=== PATIENT | male | born 1935 | race Caucasian/White ===

== ENCOUNTER 2019-10-31 12:51 | Emergency (ER) | payer MEDICARE, SELFPAY ==
[2019-10-31 13:01] VITALS: BP 126/73; PULSE 88; RESP 18; TEMP 36.6; O2SAT 99
--- NOTE | 2019-10-31 13:31 | ED.WOUNDLAC ---
HPI - Wound/Laceration General Chief Complaint: Wound/Laceration Stated Complaint: lower leg injury Time Seen by Provider: 10/31/19 12:55 History of Present Illness HPI narrative: He struck his left lower leg with a door shortly before arrival here. He sustained a large laceration to the area. He has moderate pain and copious bleeding, which he was not able to control. He is on coumadin. No light headedness, weakness, SOB. He denies any additional injury. Related Data Home Medications Medication Instructions Recorded Confirmed acyclovir 200 mg capsule 200 mg PO DAILY cap 04/17/19 atorvastatin 10 mg tablet 10 mg PO DAILY 04/17/19 clopidogrel 75 mg tablet 75 mg PO DAILY 04/17/19 doxazosin 2 mg tablet 2 mg PO DAILY 04/17/19 furosemide 20 mg tablet 20 mg PO DAILY tablet 04/17/19 lisinopril 10 mg tablet 10 mg PO DAILY 04/17/19 loperamide 2 mg capsule 2 mg PO Q4H PRN 04/17/19 tacrolimus 1 mg capsule 1 mg PO BID cap 04/17/19 warfarin 2 mg tablet 2 mg PO .MTueWFSat tablet 04/17/19 warfarin 3 mg tablet 3 mg PO .SunThur tablet 04/17/19 Allergies Allergy/AdvReac Type Severity Reaction Status Date / Time No Known Allergies Allergy Verified 10/31/19 13:05 Review of Systems Review of Systems: All systems reviewed & are unremarkable except as noted in HPI and below Constitutional: Constitutional: Denies chills, Denies fever(s) and Denies weakness ENT: Denies dizziness Cardiovascular: Cardiovascular: Denies chest pain Respiratory: Respiratory: Denies dyspnea Gastrointestinal: Gastrointestinal: Denies nausea Genitourinary: Genitourinary: Denies hematuria Musculoskeletal: Musculoskeletal: Denies back pain Neurologic: Denies numbness and Denies weakness Hematologic/Lymphatic: Hematologic/Lymphatic: Reports easy bleeding PMFSH Past Medical History Medical History 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 Chronic diarrhea Chronic low back pain 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 Dyslipidemia Edema of both 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 Essential (primary) hypertension GERD without esophagitis Hypertension Lymphedema of both lower extremities Pre-diabetes Squamous cell carcinoma, scalp/neck Unspecified osteoarthritis, unspecified site Vitamin D deficiency Surgical History Surgical History History of cholecystectomy 2007 History of hernia repair 2017 History of right hip replacement 2002 Hx of heart transplant 1998 Family History Family History Other Family history of cardiovascular disease Social History Social History Smoking status: Never smoker Second hand tobacco smoke exposure: No Alcohol intake: current Substance use: never Substance use type: does not use Gender identity (if verbalized by the patient): Female Exam Const: General: no acute distress and alert Orientation/consciousness: patient oriented x3 HENMT: Head: normal to inspection Resp: Effort & Inspection: normal respiratory effort Auscultation: clear to auscultation bilaterally Cardio: Other: 2+ left DP pulse Skin: Other: 20 cm laceration to the left lower leg with copius bleeding Neuro: General: patient oriented x3, moves all extremities, no focal motor deficits and CN's II-XI intact bilaterally Speech: normal speech Course Vital Signs Vital signs: Vital Signs Temperature 36.6 C 10/31/19 13:01 Pulse Rate 88 10/31/19 13:01 Respiratory Rate 18 10/31/19 13:01 Blood Pressure 126/73 10/31/19 13:01 Pulse Oximetry 99 10/31/19 13:01 Temperature 36.6 C 10/31/19 13:01 Pulse Rate 92 10/31/19 16:10 Respiratory Rate 16 10/31/19 16:10 Blood Pressure 148/88 H 10/31/19 16:10 Pulse Oximetry
[2019-10-31 14:30] VITALS: BP 142/90; PULSE 82; RESP 16; O2SAT 97
[2019-10-31 14:51] LABS: Basophils Percent Auto 0.4 % (0.2-1.2); Eosinophils Absolute Auto 0.1 K/mm3 (0-0.3); Eosinophils Percent Auto 1.1 % (0-4.4); Hematocrit 34.2 % (42.0-52.0); Immature Granulocyte Absolute 0.03 K/mm3 (0.00-0.031); Immature Granulocyte Percent A 0.6 % (0-0.5); Lymphocytes Absolute Auto 0.67 K/mm3 (0.9-3.2); Lymphocytes Percent Auto 12.7 % (18.3-44.2); Mean Corpuscular HGB Conc 32.2 g/dl (32-36); Mean Corpuscular Hemoglobin 31.2 pg (26-34); Mean Corpuscular Volume 96.9 fl (80-100); Mean Platelet Volume 10.3 fl (7.4-10.4); Monocytes Absolute Auto 0.5 K/mm3 (0.1-0.6); Monocytes Percent Auto 9.3 % (2.6-8.5); Neutrophils Percent Auto 75.9 % (45.5-73.1); Platelet Count Result 137 k/mm3 (150-375); Red Blood Count 3.53 M/mm3 (4.6-6.20); Red Cell Distribution Width 13.4 % (11.5-14.5); White Blood Count 5.3 K/mm3 (4.5-10.0)
[2019-10-31 14:54] LABS: INR 3.5; Prothrombin Time 34.2 Seconds (11.1-14.7)
[2019-10-31 16:10] VITALS: BP 148/88; PULSE 92; RESP 16; O2SAT 98
[2019-10-31] MEDS: ACETAMINOPHEN 500 MG TABLET 1000 MG PO (16:10)
== END 2019-10-31 16:11 | disposition home or self-care (01) ==
PROVIDERS: Emergency Provider Emergency Medicine; PCP Family Medicine
DX: S81.812A Laceration without foreign body, left lower leg, initial encounter (principal); X58.XXXA Exposure to other specified factors, initial encounter; Z96.641 Presence of right artificial hip joint; Z94.1 Heart transplant status; Z79.01 Long term (current) use of anticoagulants; I25.110 Atherosclerotic heart disease of native coronary artery with unstable angina pectoris; E78.5 Hyperlipidemia, unspecified; I10 Essential (primary) hypertension; K21.9 Gastro-esophageal reflux disease without esophagitis; M19.90 Unspecified osteoarthritis, unspecified site; Z85.828 Personal history of other malignant neoplasm of skin
CPT/HCPCS: 12005; 36415; 85025; 85610; 99283; A9270

== ENCOUNTER 2019-10-31 20:33 | Observation (INO) | payer MEDICARE, SELFPAY ==
[2019-10-31 20:40] VITALS: BP 101/68; PULSE 80; RESP 13; TEMP 36.4; O2SAT 99
--- NOTE | 2019-10-31 20:57 | ED.GENADULT ---
HPI - General Adult General Chief complaint: Wound/Laceration <PHIL Zabala Last Filed: 10/31/19 22:18> Stated complaint: incision bleeding <PHIL Zabala Last Filed: 10/31/19 22:18> Time Seen by Provider: 10/31/19 20:36 <PHIL Zabala Last Filed: 10/31/19 22:18> Source: patient <PHIL Zabala Last Filed: 10/31/19 22:18> Mode of arrival: ambulatory <PHIL Zabala Last Filed: 10/31/19 22:18> Limitations: no limitations <PHIL Zabala Last Filed: 10/31/19 22:18> History of Present Illness HPI narrative: Patient is a 84-year-old male who presents to emergency department for evaluation of continued bleeding from the left lower extremity wound that occurred earlier today patient caught the leg on a car door had wound closed in the emergency department was discharged home patient at home continued to have bleeding from the wound and on arrival to emergency department notes that he was feeling diaphoretic and weak. Patient had felt fine prior to the injury patient had lost significant blood earlier today from the wound per patient and his . Patient had blood work performed in the emergency department. Patient on arrival is resting comfortably in the room noting mild pain in the left leg at the location of the laceration. Patient denies other sources of bleeding or complaints. Patient presents per private vehicle with his <PHIL Zabala Last Filed: 10/31/19 22:18> Related Data Home medications: Home Medications Medication Instructions Recorded Confirmed acyclovir 200 mg capsule 200 mg PO DAILY cap 04/17/19 atorvastatin 10 mg tablet 10 mg PO DAILY 04/17/19 clopidogrel 75 mg tablet 75 mg PO DAILY 04/17/19 doxazosin 2 mg tablet 2 mg PO DAILY 04/17/19 furosemide 20 mg tablet 20 mg PO DAILY tablet 04/17/19 lisinopril 10 mg tablet 10 mg PO DAILY 04/17/19 loperamide 2 mg capsule 2 mg PO Q4H PRN 04/17/19 tacrolimus 1 mg capsule 1 mg PO BID cap 04/17/19 warfarin 2 mg tablet 2 mg PO .MTueWFSat tablet 04/17/19 warfarin 3 mg tablet 3 mg PO .SunThur tablet 04/17/19 <Marcelino Martinez PA-C - Last Filed: 10/31/19 22:18> Allergies/adverse reactions: Allergies Allergy/AdvReac Type Severity Reaction Status Date / Time No Known Allergies Allergy Verified 10/31/19 13:05 <Marcelino Martinez PA-C - Last Filed: 10/31/19 22:18> Review of Systems Review of Systems: All systems reviewed & are unremarkable except as noted in HPI and below <Marcelino Martinez PA-C - Last Filed: 10/31/19 22:18> [facility] Past Medical History Medical History: Medical History (Updated 10/31/19 @ 22:18 by Marcelino Martinez PA-C) 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 Chronic diarrhea Chronic low back pain 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 DVT (deep venous thrombosis) Dyslipidemia Edema of both 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 Essential (primary) hypertension GERD without esophagitis Hypertension Lymphedema of both lower extremities Pre-diabetes Squamous cell carcinoma, scalp/neck Unspecified osteoarthritis, unspecified site Vitamin D deficiency <Marcelino Martinez PA-C - Last Filed: 10/31/19 22:18> Surgical History Surgical History: Surgical History History of cholecystectomy 2007 History of hernia repair 2017 History of right hip replacement 2001 Hx of heart transplant 1998 <Marcelino Martinez PA-C - Last Filed: 10/31/19 22:18> Social History Social History: Social History Smoking status: Never smoker Second hand tobacco smoke exposure: No Alcohol intake: current Substance use: never Substance use type: does not use Gender identity (if verbalized by the patient): Male Sexual Orientation (if Verbalized
[2019-10-31] MEDS: LIDO 1%/EPINEPHRINE 1:100,000 20 ML VIAL (21:21)
[2019-10-31] MEDS: SODIUM CHLORIDE 0.9% IV 500 ML 999 ML IV CONT ×2 (21:30→22:35)
[2019-10-31 21:37] LABS: Basophils Percent Auto 0.4 % (0.2-1.2); Eosinophils Absolute Auto 0.1 K/mm3 (0-0.3); Eosinophils Percent Auto 1.6 % (0-4.4); Hematocrit 30.2 % (42.0-52.0); Hemoglobin 9.7 g/dL (14.0-18.0); Immature Granulocyte Absolute 0.02 K/mm3 (0.00-0.031); Immature Granulocyte Percent A 0.4 % (0-0.5); Lymphocytes Absolute Auto 1.26 K/mm3 (0.9-3.2); Lymphocytes Percent Auto 25.9 % (18.3-44.2); Mean Corpuscular HGB Conc 32.1 g/dl (32-36); Mean Corpuscular Hemoglobin 31.3 pg (26-34); Mean Corpuscular Volume 97.4 fl (80-100); Mean Platelet Volume 10.1 fl (7.4-10.4); Monocytes Absolute Auto 0.5 K/mm3 (0.1-0.6); Monocytes Percent Auto 10.5 % (2.6-8.5); Neutrophils Percent Auto 61.2 % (45.5-73.1); Platelet Count Result 140 k/mm3 (150-375); Red Cell Distribution Width 13.4 % (11.5-14.5); White Blood Count 4.9 K/mm3 (4.5-10.0)
[2019-10-31 21:48] LABS: INR 3.6; Partial Thromboplastin Time 33.5 SECONDS (22.3-36.8); Prothrombin Time 35.2 Seconds (11.1-14.7)
[2019-10-31 21:49] LABS: Anion Gap 8 mmol/L (8-16); Blood Urea Nitrogen 47 mg/dL (9-20); Calcium 8.1 mg/dL (8.4-10.2); Carbon Dioxide 21 mmol/L (22-30); Chloride 108 mmol/L (98-107); Estimated CRCL calculation 36 ml/min; Estimated Glomerular Filt Rate 42; Glucose 141 mg/dL (75-110); Potassium 4.5 mmol/L (3.4-5.0); Sodium 137 mmol/L (137-145)
[2019-10-31 22:32] VITALS: BP 98/54; PULSE 73; RESP 20; O2SAT 99
[2019-10-31 23:23] VITALS: BMI 22.8
[2019-10-31 23:24] VITALS: BP 108/65; BP 131/59; PULSE 74; PULSE 90; RESP 16; RESP 18; TEMP 36.4; TEMP 36.7; O2SAT 100; O2SAT 99
--- NOTE | 2019-10-31 23:48 | ADMGEN ---
This patient, Pedro Varela, was admitted to Medical Room 344-01. Patient/family oriented to hospital policies and general routines including ID bracelet, bed and alarms, visiting hours, pain management, procedures, bathroom and other care routines, personal items, smoking policy, room service/diet, and visiting hours. Valuables list has been completed. Information on how to activate the Rapid Response Team has been discussed. Patient/Family are encouraged to report perceived risks to care and to ask questions if they do not understand what they are told or what they should do.
[2019-11-01] VITALS (7 sets, daily range): BP systolic 103–122; BP diastolic 47–60; PULSE 78–85; RESP 16–20; TEMP 36.3–37; O2SAT 98–100
[2019-11-01] MEDS: LACTATED RINGERS 1,000 ML 75 ML IV CONT (00:05)
[2019-11-01 01:24] LABS: Hematocrit 25.7 % (42.0-52.0); Hemoglobin 8.3 g/dL (14.0-18.0)
--- NOTE | 2019-11-01 05:17 | PM.IMHP ---
H&P: HPI History of Present Illness Date/Time: 11/01/19 03:00 Chief complaint: Supratherapeutic INR, leg laceration, anemia Narrative: Pedro Varela is a 84 year old male with a past medical history of heart transplant secondary to cardiomyopathy, distant history of right lower extremity DVT on chronic anticoagulation with Coumadin who presented to the ER 10/31/2019 after lacerating his leg on the car door. The patient reported that he had dropped off a movie at the [employer] and when he went to get back in the car he scraped his leg on the corner of the door. He drove home and when his salt how much his leg was bleeding she brought him to the ER. The patient leg was stapled in he was discharged back home. However when he returned home he again had recurrent bleeding from his leg. Patient also became diaphoretic and weak when he returned to the ER the patient's INR had been slightly elevated at 3.5 when he initially presented to the ER. his hemoglobin on initial presentation was also 11. When he returned home he was sitting with his leg elevated but despite these efforts he continued to bleed. When he came to the ER he was still having significant bleeding from the wound and subsequently his wound was a infiltrated with lidocaine and epinephrine and a couple of more gilberto were placed. His wound was redressed and he has had good hemostasis since that time. As his repeat hemoglobin on returned to the ER had dropped down to 9.7 And repeat value approximately 4 hours later dropped to 8.3. The patient did have significant edema noted to bilateral lower extremities but he states that this is his usual amount of swelling. He has not been having any orthopnea. He always has some mild dyspnea on exertion but this is unchanged from baseline. He has not been having any chest pain or palpitations. He does have known multivessel coronary artery disease in his transplanted heart. He had a repeat cardiac catheterization in April of 2019 at [facility] which demonstrated stable pathology. He has not had any hematochezia, melena or hematuria. He is interested in changing his anticoagulant to 1 of the novel anticoagulants. 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 He subsequently schedule the appointment for a routine vision exam that was supposed to of occurred on the . 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 Review of Systems Review of Systems: Narrative: 12 systems were reviewed with pertinent positives and negatives per HPI. Except as documented in the HPI, all other systems were reviewed and are negative. 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 with repeat cardiac catheterization April 2019 DVT (deep venous thrombosis) right lower extremity many years ago Dyslipidemia Edema of both 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 Essential (primary) hypertension GERD without esophagitis Hypertension Pre-diabetes Squamous cell carcinoma, scalp/neck Unspecified osteoarthritis, unspecified site Vitamin D deficiency Surgical History Surgical History History of cholecystectomy 2007 History of hernia repair 2017 History of right hip replacement 2002 Hx of heart transplant 1998 Family History Family History (Updated 11/01/19 @ 05:32 by Madalyn Kay DO) Son Dilated cardiomyopathy-1A associated with mutation in LMNA gene Heart transplant recipient, Onset Age: 43 Daughter Familial dilated cardiomyopathy with conduction defect due to LMNA gene mutation Pacemaker Social History
[2019-11-01 05:59] LABS: Anion Gap 0 mmol/L (8-16); Blood Urea Nitrogen 47 mg/dL (9-20); Calcium 7.7 mg/dL (8.4-10.2); Carbon Dioxide 26 mmol/L (22-30); Chloride 112 mmol/L (98-107); Estimated CRCL calculation 36 ml/min; Estimated Glomerular Filt Rate 42; Glucose 106 mg/dL (75-110); Sodium 138 mmol/L (137-145)
[2019-11-01 06:03] LABS: INR 4.6
[2019-11-01 06:08] LABS: Hematocrit 24.2 % (42.0-52.0); Hemoglobin 7.8 g/dL (14.0-18.0); Mean Corpuscular HGB Conc 32.2 g/dl (32-36); Mean Platelet Volume 10.7 fl (7.4-10.4); Platelet Count Result 123 k/mm3 (150-375); Red Blood Count 2.52 M/mm3 (4.6-6.20); Red Cell Distribution Width 13.4 % (11.5-14.5); White Blood Count 4.8 K/mm3 (4.5-10.0)
[2019-11-01] MEDS: FAMOTIDINE 20 MG/2 ML VIAL IV PUSH ×2 (09:27→20:07)
[2019-11-01] MEDS: CHOLESTYRAMINE (W/ SUGAR) 4 GM POWD.PACK BY MOUTH ×2 (09:27→17:35)
[2019-11-01] MEDS: ACYCLOVIR 200 MG CAPSULE PO (09:27)
[2019-11-01] MEDS: predniSONE 5 MG TABLET PO (09:27)
[2019-11-01] MEDS: lisinopriL 10 MG TABLET PO ×2 (09:28→16:33)
[2019-11-01] MEDS: DOXAZOSIN MESYLATE 2 MG TABLET PO (09:28)
[2019-11-01] MEDS: CLOPIDOGREL BISULFATE 75 MG TABLET PO (09:29)
[2019-11-01] MEDS: ATORVASTATIN 10 MG TABLET PO (09:29)
[2019-11-01] MEDS: TORSEMIDE 20 MG TABLET PO ×2 (09:42→16:33)
[2019-11-01 10:13] LABS: Hematocrit 25.1 % (42.0-52.0); Hemoglobin 8.1 g/dL (14.0-18.0)
--- NOTE | 2019-11-01 11:41 | PM.IMPN ---
Progress Note: A&P Assessment and Plan (1) Anemia: Qualifiers: Anemia type: other cause Other causes of anemia: acute posthemorrhagic Qualified Code(s): D62 - Acute posthemorrhagic anemia Code(s): D64.9 - Anemia, unspecified Status: Acute Assessment and Plan: -----hemoglobin 11.0 on admission down to 8.1 today. His INR is elevated at 4.6 and since there is a hematoma forming, I am going to reverse his INR at this time. He has a distant medical history of a right lower extremity DVT. Will trend hemoglobin. Last plavix dose 11/01/19, will hold until sx sees. (2) Laceration of left leg: Qualifiers: Encounter type: initial encounter Qualified Code(s): S81.812A - Laceration without foreign body, left lower leg, initial encounter Code(s): S81.812A - Laceration without foreign body, left lower leg, initial encounter Status: Acute Assessment and Plan: -----Hematoma noted near incision site and it is ozzing blood with a dropping hgb. I have asked surgery to see the patient to see if he needs an evacuation of the hematoma. (3) Supratherapeutic INR: Code(s): R79.1 - Abnormal coagulation profile Status: Acute Assessment and Plan: -----INR increasing now 4.6. Will order 10mg of vit K now. He is interested in xarelto in the future, I am going to see if we can [place] that for him. Hx of DVT in the distant past, no imaging here to confirm date. (4) Hx of heart transplant: Code(s): Z94.1 - Heart transplant status Status: Acute Assessment and Plan: -----Will continue the patient's home anti-rejection medications as well as statin therapy, lisinopril and diuretic therapy. Will hold plavix at this time. Time Spent With Patient Time with patient: 25 - 35 minutes Subjective Date/time seen: 11/01/19 11:41 Interval history: Pt is a 84-year-old male here for leg laceration with blood loss. Patient was seen today and states that he is not really having any pain to the area. He says his lower extremities are usually swollen but the left leg/foot is little worse. He does not have a lot of pain to the area or numbness or tingling. He denies lightheadedness, dizziness, chest pain, nausea, vomiting, fevers, chills, shortness of breath, or abdominal pain. He is eating and drinking well. Review of Systems Review of Systems: All systems reviewed & are unremarkable except as noted in HPI and below Exam Narrative: Exam Narrative: General: Well developed well nourished patient resting comfortably in bed in no acute distress HEENT: normocephalic Neck: supple Neuro: Alert and oriented x4 CV:RRR Resp:CTA Abd: Soft, non distended. No pain to palpation. Positive bowel sounds Extremities:left leg incision examined with palpable hematoma and slow oozing of blood. No pain to the area or purulent discharge. Pulses and sensation intact. Objective Data Vital Signs Vital Signs: Vital Signs - 24 hr 10/31/19 20:40 10/31/19 22:32 10/31/19 23:24 Temperature 97.6 F 98.0 F Pulse Rate 80 73 74 Respiratory Rate 13 20 18 Blood Pressure 101/68 98/54 L 108/65 Pulse Oximetry 99 99 99 11/01/19 05:01 11/01/19 10:00 Temperature 97.7 F 97.3 F L Pulse Rate 78 80 Respiratory Rate 16 20 Blood Pressure 115/54 L 103/56 L Pulse Oximetry 99 100 Intake/Output Intake/Output: Intake & Output 10/29/19 10/30/19 10/31/19 11/01/19 23:59 23:59 23:59 23:59 Intake Total 1000 789 Output Total 225 Balance 1000 564 Meds/Results Medications: Active Medications Generic Name Dose Route Start Last Admin Trade Name Freq PRN Reason Stop Dose Admin Acyclovir 200 mg 11/01/19 09:00 11/01/19 09:27 Zovirax Po PO 200 mg DAILY ALBERT Administration Atorvastatin Calcium 10 mg 11/01/19 09:00 11/01/19 09:29 Lipitor PO 10 mg DAILY ALBERT Administration Cholestyramine Resin 4 gm 11/01/19 09:00 11/01/19 09:27 Kathe Avila
--- NOTE | 2019-11-01 12:31 | PM.CNGS ---
Assessment and Plan Assessment and plan (1) Laceration of left leg: Qualifiers: Encounter type: initial encounter Qualified Code(s): S81.812A - Laceration without foreign body, left lower leg, initial encounter Code(s): S81.812A - Laceration without foreign body, left lower leg, initial encounter Status: Acute Assessment and Plan: Skin appears healthy and viable. No evidence of necrosis or concerns of compartment syndrome. Hematoma is superficial and would be easy to evacuate if this were required. Bleeding should stop once INR is adequately reversed. Will continue to watch wound for now and await for any worsening signs that would require hematoma evacuation. (2) Supratherapeutic INR: Code(s): R79.1 - Abnormal coagulation profile Status: Acute Assessment and Plan: Vitamin K given orally today. Will watch INR keep in the hospital until no further signs bleeding or expanding hematoma. (3) Hx of heart transplant: Code(s): Z94.1 - Heart transplant status Status: Acute (4) DVT (deep venous thrombosis): Code(s): I82.409 - Acute embolism and thrombosis of unspecified deep veins of unspecified lower extremity Status: Acute History of Present Illness Consult details Consult date: 11/01/19 Reason for consult: other ( Leg hematoma.) Requesting physician: Kasie Powell PA-C Narrative: This is an 84-year-old man who presented to the emergency department with bleeding from a leg wound. He had cut his left lower leg on the corner of his car door and had a large laceration. He went to the emergency department and this was stapled and sutured closed. He was sent home, but shortly after getting home he noticed a significant amount of bleeding from the wound. He is anticoagulated with Coumadin for history of DVT and heart transplant. His INR has gone up and his hemoglobin had dropped with the amount of blood loss from this wound. He was admitted for further treatment. He has some pain at the laceration and where it is swollen, but denies any significant pain in the foot or toes. He has normal sensation. Review of Systems Review of Systems: All systems reviewed & are unremarkable except as noted in HPI and below Eyes: Eyes: Denies change in vision ENT: Denies hearing loss, Denies neck pain and Denies sore throat Cardiovascular: Cardiovascular: Denies chest pain and Denies dyspnea Respiratory: Respiratory: Denies cough, Denies dyspnea and Denies wheezing Genitourinary: Genitourinary: Denies hematuria and Denies dysuria Musculoskeletal: Musculoskeletal: Denies arthralgias, Denies joint swelling and Denies neck pain Integumentary/Breasts: Skin/Breast: Reports as per HPI Hematologic/Lymphatic: Hematologic/Lymphatic: Reports as per HPI Allergic/Immunologic: Allergic/Immunologic: Denies wheezing [facility] Past Medical History Medical History 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 Chronic diarrhea Chronic low back pain 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 with repeat cardiac catheterization April 2019 DVT (deep venous thrombosis) right lower extremity many years ago Dyslipidemia Edema of both 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 Essential (primary) hypertension GERD without esophagitis Hypertension Pre-diabetes Squamous cell carcinoma, scalp/neck Unspecified osteoarthritis, unspecified site Vitamin D deficiency Surgical History Surgical History History of cholecystectomy 2007 History of hernia repair 2017 History of right hip replacement 2002 Hx of heart transplant 1998 Family History Family History Son Dilated cardiomyopathy-1A associated with m
[2019-11-01] MEDS: PHYTONADIONE 5 MG TABLET 10 MG PO (12:55)
--- NOTE | 2019-11-01 13:22 | PHAR ---
HOME MEDICATION VERIFIED BY PHARMACY: TACROLIMUS 1MG CAPSULES 1 CAP PO TWICE DAILY #[id number]
[2019-11-01 15:14] LABS: Hematocrit 26.5 % (42.0-52.0); Hemoglobin 8.7 g/dL (14.0-18.0)
[2019-11-01 15:24] LABS: INR 3.7; Prothrombin Time 36.2 Seconds (11.1-14.7)
[2019-11-02 05:39] VITALS: BP 117/63; PULSE 80; RESP 16; TEMP 36.3; O2SAT 99
[2019-11-02 06:09] LABS: Hematocrit 24.7 % (42.0-52.0); Hemoglobin 7.9 g/dL (14.0-18.0); Mean Corpuscular Hemoglobin 30.6 pg (26-34); Mean Corpuscular Volume 95.7 fl (80-100); Mean Platelet Volume 10.6 fl (7.4-10.4); Platelet Count Result 144 k/mm3 (150-375); Red Blood Count 2.58 M/mm3 (4.6-6.20); Red Cell Distribution Width 13.5 % (11.5-14.5); White Blood Count 6.6 K/mm3 (4.5-10.0)
[2019-11-02 06:48] LABS: Anion Gap 0 mmol/L (8-16); Blood Urea Nitrogen 46 mg/dL (9-20); Calcium 8.2 mg/dL (8.4-10.2); Carbon Dioxide 28 mmol/L (22-30); Chloride 109 mmol/L (98-107); Estimated CRCL calculation 29 ml/min; Estimated Glomerular Filt Rate 32; Glucose 105 mg/dL (75-110); Magnesium 1.7 mg/dL (1.6-2.3); Potassium 5.3 mmol/L (3.4-5.0); Sodium 137 mmol/L (137-145)
[2019-11-02 08:17] LABS: INR 1.4
[2019-11-02] MEDS: TORSEMIDE 20 MG TABLET PO (08:31)
[2019-11-02] MEDS: CHOLESTYRAMINE (W/ SUGAR) 4 GM POWD.PACK BY MOUTH (08:31)
[2019-11-02] MEDS: DOXAZOSIN MESYLATE 2 MG TABLET PO (08:31)
[2019-11-02] MEDS: ATORVASTATIN 10 MG TABLET PO (08:31)
[2019-11-02] MEDS: FAMOTIDINE 20 MG/2 ML VIAL IV PUSH (08:31)
[2019-11-02] MEDS: lisinopriL 10 MG TABLET PO (08:32)
[2019-11-02] MEDS: predniSONE 5 MG TABLET PO (08:32)
[2019-11-02] MEDS: ACYCLOVIR 200 MG CAPSULE PO (08:32)
[2019-11-02 08:40] VITALS: PULSE 80; RESP 16; O2SAT 99
[2019-11-02 10:10] VITALS: BP 102/48; PULSE 81; RESP 18; TEMP 36.9; O2SAT 98
--- NOTE | 2019-11-02 11:21 | PM.PNGS ---
Progress Note: A&P Assessment and Plan (1) Laceration of left leg: Qualifiers: Encounter type: initial encounter Qualified Code(s): S81.812A - Laceration without foreign body, left lower leg, initial encounter Code(s): S81.812A - Laceration without foreign body, left lower leg, initial encounter Status: Acute Assessment and Plan: No further bleeding noted and hematoma does not appear to require evacuation at this time. OK to discharge from surgical standpoint. Recommend holding anticoagulation until 11/03. He may follow up with me in office in 10 days for staple removal and wound check. (2) Hematoma of left lower leg: Code(s): S80.12XA - Contusion of left lower leg, initial encounter Status: Acute (3) Supratherapeutic INR: Code(s): R79.1 - Abnormal coagulation profile Status: Acute Subjective Subjective Date/Time Seen: 11/02/19 11:21 Still having pain at leg. Swelling improving. No other complaints. Exam Skin: Other: Hematoma on left leg soft. No further bleeding noticed. [place] intact. Edema improved. Objective Data Vital Signs Vital Signs: Vital Signs - 24 hr 11/01/19 14:19 11/01/19 16:32 11/01/19 18:00 Temperature 36.5 C 36.7 C Pulse Rate 80 85 Respiratory Rate 20 20 Blood Pressure 105/54 L 122/53 L 112/47 L Pulse Oximetry 98 99 11/01/19 20:00 11/02/19 05:39 11/02/19 08:40 Temperature 37.0 C 36.3 C L Pulse Rate 85 80 80 Respiratory Rate 16 16 16 Blood Pressure 111/60 117/63 Pulse Oximetry 100 99 99 11/02/19 10:10 Temperature 36.9 C Pulse Rate 81 Respiratory Rate 18 Blood Pressure 102/48 L Pulse Oximetry 98 Intake/Output Intake/Output: Intake & Output 10/30/19 10/31/19 11/01/19 11/02/19 23:59 23:59 23:59 23:59 Intake Total 1000 2159 1190 Output Total 1615 2100 Balance 1000 544 -910 Meds/Results Medications: Active Medications Generic Name Dose Route Start Last Admin Trade Name Freq PRN Reason Stop Dose Admin Acyclovir 200 mg 11/01/19 09:00 11/02/19 08:32 Zovirax Po PO 200 mg DAILY ALBERT Administration Atorvastatin Calcium 10 mg 11/01/19 09:00 11/02/19 08:31 Lipitor PO 10 mg DAILY ALBERT Administration Cholestyramine Resin 4 gm 11/01/19 17:00 11/02/19 08:31 Questran Powder Packs BY MOUTH 4 gm 0900,1700 ALBERT Administration Clopidogrel Bisulfate 75 mg 11/01/19 09:00 11/01/19 09:29 Plavix PO 75 mg DAILY ALBERT Administration Doxazosin Mesylate 2 mg 11/01/19 09:00 11/02/19 08:31 Cardura PO 2 mg DAILY ALBERT Administration Famotidine 20 mg 11/01/19 09:00 11/02/19 08:31 Pepcid Iv IV PUSH 20 mg Q12HR ALBERT Administration Lisinopril 10 mg 11/01/19 09:00 11/02/19 08:32 Prinivil PO 10 mg BID ALBERT Administration Loperamide HCl 2 mg 11/01/19 05:28 Loperamide Hcl PO Q4H PRN diarrhea Ondansetron HCl 4 mg 10/31/19 22:18 Zofran Inj IV PUSH Q4H PRN Nausea Prednisone 5 mg 11/01/19 08:00 11/02/19 08:32 Prednisone PO 5 mg DAILY@0800 ALBERT Administration Torsemide 20 mg 11/01/19 09:00 11/02/19 08:31 Demadex PO 20 mg BID ALBERT Administration Labs Labs: Laboratory Results - last 24 hr 11/01/19 11/01/19 11/02/19 15:03 15:03 05:26 WBC 6.6 RBC 2.58 L Hgb 8.7 L 7.9 L Hct 26.5 L 24.7 L MCV 95.7 MCH 30.6 MCHC 32.0 RDW 13.5 Plt Count 144 L MPV 10.6 H PT 36.2 H INR 3.7 Sodium Potassium Chloride Carbon Dioxide Anion Gap BUN Creatinine Estim Creat Clear Calc Estimated GFR Glucose Calcium Magnesium 11/02/19 11/02/19 05:27 07:07 WBC RBC Hgb Hct MCV MCH MCHC RDW Plt Count MPV PT 17.0 H D INR 1.4 Sodium 137 Potassium 5.3 H Chloride 109 H Carbon Dioxide 28 Anion Gap 0 L BUN 46 H Creatinine 2.00 H Estim Creat Clear Calc 29 Estimated GFR 32 L Glucose 1
--- NOTE | 2019-11-02 11:24 | PM.DS ---
DS: Admitting Diagnosis Admitting Diagnosis Admitting Diagnosis: Supratherapeutic INR, leg laceration, anemia DS: Discharge Diagnosis Discharge Diagnosis (1) Anemia: Qualifiers: Anemia type: other cause Other causes of anemia: acute posthemorrhagic Qualified Code(s): D62 - Acute posthemorrhagic anemia Code(s): D64.9 - Anemia, unspecified Status: Acute Assessment and Plan: -----hemoglobin 11.0 on admission and was discharged at 7.9. He had no dizziness, CP, or weakness with this. His INR was elevated at 4.6 and it was reversed and was 1.4 at discharge. He wants to change to Eliquis and this was ordered but was instructed not to start taking it until Sunday. He has a distant medical history of a right lower extremity DVT. (2) Laceration of left leg: Qualifiers: Encounter type: initial encounter Qualified Code(s): S81.812A - Laceration without foreign body, left lower leg, initial encounter Code(s): S81.812A - Laceration without foreign body, left lower leg, initial encounter Status: Acute Assessment and Plan: -----Hematoma noted near incision site that looks stable and no surgical intervention is needed per surgery. They are going to follow up with him next week and he was told to continue his anti coagulation on Sunday but if he starts bleeding again he is to stop this. Follow up with surgery. (3) Supratherapeutic INR: Code(s): R79.1 - Abnormal coagulation profile Status: Acute Assessment and Plan: -----see above (4) Hx of heart transplant: Code(s): Z94.1 - Heart transplant status Status: Acute Assessment and Plan: -----Will continue the patient's home anti-rejection medications as well as statin therapy and diuretic therapy. Will hold plavix at this time. Patient had hyperkalemia so his lisinopril was held. He is to have a repeat potassium on Sunday and hold his lisinopril. He is to follow-up with his primary care physician about restarting this at their discretion DS: Summary Hospital Course Reason for hospitalization: Leg laceration Hospital Course: Patient is an 84-year-old male who lacerated his leg on a car door and came into the emergency room and was evaluated and gilberto were applied. He went home and kept bleeding so he came back and was admitted to the hospitalist service. His INR was found to be 4.6 at its max and was reverse now 1.4 at discharge. His wound developed a hematoma which was monitored by surgery and was stable so no surgical intervention was needed. His hemoglobin went from 11.6-7.9 but he was asymptomatic with this and no transfusion was needed. His warfarin will be discontinued and he is going to start Eliquis on Sunday and follow-up with surgery to ensure no additional bleeding. He also had hyperkalemia the day of discharge 5.3. I have instructed the patient to hold his lisinopril until he sees his primary care physician after getting his lab draw on Sunday. His potassium is 5.3 and I will let his pcp know on sunday. Status at Discharge Functional status at discharge: independent ambulation Overall status at discharge: patient is progressing back to baseline Time Spent with Patient Time attestation: Total time spent providing and/or coordinating discharge services:34 min Time spent: Greater than 30 minutes Exam Narrative: Exam Narrative: General: Well developed well nourished patient resting comfortably in bed in no acute distress HEENT: normocephalic Neck: supple Neuro: Alert and oriented x4 CV:RRR Resp:CTA Abd: Soft, non distended. No pain to palpation. Positive bowel sounds Extremities:left leg incision examined with palpable hematoma with minimal bleeding. No pain to the area or purulent discharge. Pulses and sensation intact. DS: Data Data Completed and Pending Labs on day of discharge: Labs from last 24 hours 11/02/19 11/02/19 11/02/19 07
[2019-11-02] MEDS: ACETAMINOPHEN 325 MG TABLET 650 MG PO (11:59)
[2019-11-02 12:00] VITALS: BP 118/58; PULSE 90
== END 2019-11-02 13:25 | disposition home or self-care (01) ==
LOC: ANHED 22:24 → ANH3MED 23:20
PROVIDERS: Emergency Medicine Emergency Medical Services; Physician Assistant; Admitting Provider Internal Medicine; Emergency Provider Emergency Medicine; PCP Family Medicine; Visit Provider Internal Medicine
DX: D62 Acute posthemorrhagic anemia (principal); S81.812A Laceration without foreign body, left lower leg, initial encounter; W22.8XXA Striking against or struck by other objects, initial encounter; R79.1 Abnormal coagulation profile; Z79.01 Long term (current) use of anticoagulants; Z86.718 Personal history of other venous thrombosis and embolism; I25.811 Atherosclerosis of native coronary artery of transplanted heart without angina pectoris; R73.03 Prediabetes; Z94.1 Heart transplant status; I42.9 Cardiomyopathy, unspecified; E55.9 Vitamin D deficiency, unspecified; I10 Essential (primary) hypertension; E78.5 Hyperlipidemia, unspecified; K21.9 Gastro-esophageal reflux disease without esophagitis; K52.9 Noninfective gastroenteritis and colitis, unspecified; G89.29 Other chronic pain; M54.5 Low back pain; M19.90 Unspecified osteoarthritis, unspecified site; Z96.641 Presence of right artificial hip joint; Z79.02 Long term (current) use of antithrombotics/antiplatelets
CPT/HCPCS: 12005; 36415; 80048; 83735; 85014; 85018; 85025; 85027; 85610; 85730; 86850; 86900; 86901; 96361; 96374; 96375; 96376; 99283; 99285; A9270; G0378; J0131; J7040; J7120; J7512

== ENCOUNTER 2019-11-06 15:10 | Emergency (ER) | payer MEDICARE, SELFPAY ==
[2019-11-06] VITALS (19 sets, daily range): BP systolic 125–144; BP diastolic 60–79; PULSE 82–95; RESP 14–25; TEMP 36.9; O2SAT 18–100
--- NOTE | 2019-11-06 16:38 | ED.SKABFB ---
HPI - Skin/Abscess/Foreign Bdy General Chief complaint: Skin/Abscess/Foreign Body Stated complaint: infection left leg Time Seen by Provider: 11/06/19 16:04 Source: patient Limitations: no limitations History of Present Illness HPI narrative: Pt c/o increase redness and swelling on his right leg where he had a large laceration repair done here in the ER this past Sunday. Denies any calf pain, sob, cp or fever. Related Data Home Medications Medication Instructions Recorded Confirmed acyclovir 200 mg capsule 200 mg PO DAILY cap 04/17/19 11/01/19 atorvastatin 10 mg tablet 10 mg PO DAILY 04/17/19 11/01/19 clopidogrel 75 mg tablet 75 mg PO DAILY 04/17/19 11/01/19 doxazosin 2 mg tablet 2 mg PO DAILY 04/17/19 11/01/19 lisinopril 10 mg tablet 10 mg PO BID 04/17/19 11/01/19 loperamide 2 mg capsule 2 mg PO Q4H PRN 04/17/19 11/01/19 tacrolimus 1 mg capsule 1 mg PO BID cap 04/17/19 11/01/19 prednisone 5 mg PO DAILY 11/01/19 11/01/19 torsemide 20 mg PO BID 11/01/19 11/01/19 Allergies Allergy/AdvReac Type Severity Reaction Status Date / Time No Known Allergies Allergy Verified 11/06/19 16:02 Review of Systems Review of Systems: All systems reviewed & are unremarkable except as noted in HPI and below Constitutional: Constitutional: Denies body ache(s), Denies chills, Denies excessive sweating, Denies fatigue, Denies fever(s), Denies headache(s), Denies lethargy, Denies malaise, Denies weakness and Denies weight loss Eyes: Eyes: Denies blurry vision, Denies change in vision and Denies loss of vision ENT: Denies dizziness, Denies ear discharge, Denies headache(s), Denies lip swelling, Denies epistaxis, Denies nasal congestion, Denies neck pain, Denies throat swelling and Denies tongue swelling Cardiovascular: Cardiovascular: Denies chest pain, Denies chest pain at rest, Denies chest pain with activity, Denies diaphoresis, Denies rapid heart rate, Denies edema, Denies irregular heart rhythm, Denies lightheadedness, Denies palpitations, Denies dyspnea and Denies dyspnea on exertion Respiratory: Respiratory: Denies chest congestion, Denies cough, Denies hemoptysis, Denies dyspnea and Denies dyspnea on exertion Gastrointestinal: Gastrointestinal: Denies abdominal pain, Denies melena, Denies hematochezia, Denies diarrhea, Denies nausea, Denies vomiting and Denies hematemesis Musculoskeletal: Musculoskeletal: Denies abnormal gait, Denies deformity, Denies joint swelling, Denies limited range of motion, Denies neck pain and Denies numbness Neurologic: Denies Abnormal speech present, Denies abnormal gait, Denies confusion, Denies dizziness, Denies headache(s), Denies focal weakness, Denies loss of vision, Denies numbness, Denies Other visual disturbances, Denies Sensory deficit (Neuro) and Denies weakness Psychiatric: Psychiatric: Denies confusion, Denies depression, Denies auditory hallucinations, Denies homicidal ideation and Denies suicidal ideation Endocrine: Endocrine: Denies cold intolerance, Denies excessive sweating, Denies fatigue, Denies heat intolerance and Denies palpitations Hematologic/Lymphatic: Hematologic/Lymphatic: Denies easy bleeding and Denies easy bruising Allergic/Immunologic: Allergic/Immunologic: Denies lip swelling, Denies throat swelling and Denies tongue swelling PMFSH Social History Social History Social History: Smoking status: Never smoker Second hand tobacco smoke exposure: No Alcohol intake: current Drinks per week: 7 Substance use: never Substance use type: does not use Additional living arrangements comments: The patient lives in [place] with his of 53 years. They have 5 children. Three of his children have cardiomyopathy due to LMNA gene mutation. His son received a heart transplant in his early 40s. His 2 other children have cardiac pacemakers in place. Additional occupation/education comments: He is a retired profes
[2019-11-06 17:15] LABS: Basophils Percent Auto 0.6 % (0.2-1.2); Eosinophils Percent Auto 0.6 % (0-4.4); Hematocrit 25.9 % (42.0-52.0); Hemoglobin 8.1 g/dL (14.0-18.0); Immature Granulocyte Absolute 0.02 K/mm3 (0.00-0.031); Immature Granulocyte Percent A 0.3 % (0-0.5); Lymphocytes Absolute Auto 1.06 K/mm3 (0.9-3.2); Lymphocytes Percent Auto 16.7 % (18.3-44.2); Mean Corpuscular HGB Conc 31.3 g/dl (32-36); Mean Corpuscular Hemoglobin 31.2 pg (26-34); Mean Corpuscular Volume 99.6 fl (80-100); Mean Platelet Volume 10.1 fl (7.4-10.4); Monocytes Absolute Auto 0.8 K/mm3 (0.1-0.6); Monocytes Percent Auto 13.3 % (2.6-8.5); Neutrophils Absolute Auto 4.3 K/mm3 (1.3-6.7); Neutrophils Percent Auto 68.5 % (45.5-73.1); Nucleated Red Blood Cells Perc 0.3 % (0.0-0.2); Platelet Count Result 185 k/mm3 (150-375); Red Cell Distribution Width 14.3 % (11.5-14.5); White Blood Count 6.3 K/mm3 (4.5-10.0)
[2019-11-06 17:25] LABS: Partial Thromboplastin Time 20.7 SECONDS (22.3-36.8); Prothrombin Time 13.3 Seconds (11.1-14.7)
[2019-11-06] MEDS: CLINDAMYCIN 600 MG/NS 50 ML 600 MG/50 ML PIGGYBACK 100 MG IVPB (18:05)
[2019-11-06 18:17] LABS: Anion Gap 3 mmol/L (8-16); Blood Urea Nitrogen 42 mg/dL (9-20); Calcium 8.5 mg/dL (8.4-10.2); Carbon Dioxide 26 mmol/L (22-30); Chloride 108 mmol/L (98-107); Estimated CRCL calculation 37 ml/min; Estimated Glomerular Filt Rate 45; Glucose 113 mg/dL (75-110); Potassium 4.9 mmol/L (3.4-5.0); Sodium 137 mmol/L (137-145)
[2019-11-06] MEDS: oxyCODONE/ACETAMINOPHEN (*CRX) 5-325 MG TABLET 1 TABLET PO (19:47)
== END 2019-11-06 20:17 | disposition home or self-care (01) ==
PROVIDERS: Emergency Provider Emergency Medicine; PCP Family Medicine
DX: L03.116 Cellulitis of left lower limb (principal); N40.0 Benign prostatic hyperplasia without lower urinary tract symptoms; I25.10 Atherosclerotic heart disease of native coronary artery without angina pectoris; I25.119 Atherosclerotic heart disease of native coronary artery with unspecified angina pectoris; Z86.718 Personal history of other venous thrombosis and embolism; E78.5 Hyperlipidemia, unspecified; Z94.1 Heart transplant status; I10 Essential (primary) hypertension; K21.9 Gastro-esophageal reflux disease without esophagitis; Z85.828 Personal history of other malignant neoplasm of skin; M19.90 Unspecified osteoarthritis, unspecified site; R73.03 Prediabetes; E55.9 Vitamin D deficiency, unspecified; Z96.641 Presence of right artificial hip joint
CPT/HCPCS: 36415; 80048; 85025; 85610; 85730; 96365; 99284; A9270

== ENCOUNTER 2019-11-11 15:07 | Outpatient (CLI) | payer MEDICARE, SELFPAY ==
--- NOTE | ~2019-11-11 | US_ITS ---
EXAMINATION: US venous doppler [facility] DATE: 11/11/2019 15:45 INDICATION: Left lower limb pain TECHNIQUE: Grayscale ultrasound images without and with compression and Doppler ultrasound images of the left lower extremity veins were obtained. COMPARISON: None. FINDINGS: The visualized portions of left common femoral vein, profunda (deep) femoral vein, femoral vein, popl iteal vein, peroneal veins, posterior tibial veins, gastrocnemius vein and greater saphenous vein out flow are patent. IMPRESSION: 1. No deep venous thrombosis in the left lower limb. Reviewed, dictated and finalized at location A.
== END 2019-11-11 15:08 | disposition home or self-care (01) ==
PROVIDERS: PCP Family Medicine; Visit Provider Family Medicine
DX: M79.605 Pain in left leg (principal)
CPT/HCPCS: 93971

== ENCOUNTER 2020-02-12 07:30 | Outpatient (RCR) | payer MEDICARE, SELFPAY ==
[2019-11-19 12:54] VITALS: BMI 22.1
== END 2020-02-17 23:59 | disposition home or self-care (01) ==
LOC: ANHWOC 07:30
PROVIDERS: PCP Family Medicine; Visit Provider Surgery
DX: S80.12XD Contusion of left lower leg, subsequent encounter (principal)
CPT/HCPCS: 99212; 99213; A9270; G0463

== ENCOUNTER 2020-05-20 07:25 | Outpatient (RCR) | payer MEDICARE, SELFPAY ==
--- NOTE | 2020-03-11 12:30 | P.PNWOUND_ITS ---
Wound Care Note Date/Time: 03/11/20 12:30 History: This is an 84-year-old man who presented with a laceration from hitting his car door on his left lower leg 10/31/2019. He presented to the emergency department after this injury and the laceration was repaired with gilberto. He then developed a large hematoma deep to this wound and eventually the wound had to be opened up and the clot evacuated. He was left with a necrotic area of skin which developed into an open wound. After the clot was evacuated, has been doing local wound care at home. He has been seeing the wound ostomy care nurses for help with wound care needs. Wound history: Patient has been applying silver gel to the wound bed and Yesica to the tunneling area. Aquacel Ag rope has then been applied over the open wound followed by ABD pad and tape. There has been little improvement in the tunneling over the past 2 weeks. Wound approximation: No Wound width: 1.9cm Wound length: 3cm Wound depth: 0.3cm Drainage: Serosanguinous Surrounding tissue appearance: Edema to LLE Tunnelin.2cm at 1 o'clock Percentage granulation tissue: 100% Assessment and Plan Assessment and plan (1) Non-healing wound of left lower extremity: Code(s): S81.802A - Unspecified open wound, left lower leg, initial encounter Status: Chronic Assessment and Plan: * patient was evaluated with the wound care nurses today. He has not had much improvement and wound closure in the area that is tunneling. Silver nitrate applied today to hopefully help with further granulation tissue developing closure of the Wound. I discussed with the patient that if this does not help, I could try using a curette to further debride the area. Also could consider incising the overlying skin to open this area up to further debride. Will have patient follow up in the Wound Care Clinic in 2 weeks. (2) Laceration of left leg: Qualifiers: Encounter type: initial encounter Qualified Code(s): S81.812A - Lacera tion without foreign body, left lower leg, initial encounter Code(s): S81.812A - Laceration without foreign body, left lower leg, initial encounter Status: Acute Review of Systems Review of Systems: All systems reviewed & are unremarkable except as noted in HPI and below Exam Extrem: General: cyanosis of the toes, edema left and pedal edema on the left pitting and 4+ Other: Open wound to left lower extremity as described in wound assessment. Silver nitrate applied to tunneling area to try to aid with granulation and closure.
--- NOTE | 2020-04-08 12:33 | P.OP_ITS ---
Procedure Note - Detailed Date of procedure: 04/08/20 Pre-op diagnosis: left lower leg ulcer Post-op diagnosis: same Procedure performed: Sharp excisional debridement of 2 cm x 4 cm chronic nonhealing left lower extremity ulcer including skin and subcutaneous fat Description of procedure: * procedure as well as risks, benefits, and alternatives were discussed with the patient. Written consent was obtained and placed in chart prior to procedure. Patient was placed supine in wound clinic bed. His left lower extremity was prepped and draped in sterile fashion using Betadine prep. 1% lidocaine with epinephrine was infiltrated locally around the tunneled area the nonhealing ulcer. A 15 blade scalpel was then used to initially make an incision on the skin over the tunneled area. The subcu tissue was carefully inspected and there appeared to be some chronic nonhealing granulation tissue that had poor vascularity. A 4 cm x 2 cm area of skin and subcutaneous fat was excised over the tunneled area to expose the granulation tissue deep to this. After sharply excising the wound over the tunneled area, the remaining skin and granulation tissue appeared healthy and viable. Pressure was applied for hemostasis. The wound was then dressed with gentamicin ointment and gauze dressing. Anesthesia: local ( 1% lidocaine with epinephrine local.) Surgeon: Jose Jean DO Estimated blood loss (mL): 3 Pathology: none sent Complications: No immediate complications Condition: stable Disposition: same day Findings: * This patient presents with a nonhealing ulcer on his left lower extremity. This began as a skin tear that subsequently developed a hematoma with skin necrosis. The hematoma was evacuated, but some of the skin was necrotic and nonviable and this was subsequently debrided to an open wound. He has been doing local wound care and the wound has been slowly healing but in the 2 o'clock location there appears to be an area of tunneling extending about 4 cm under the skin. This area has not closed in as expected over the past couple months. It is likely epithelialized and needs further debridement. An incision was made over this area and the overlying skin and subcu fat appeared to have poor vascularity and therefore was sharply excised back to healthy appearing skin and subcu tissue. The wound bed now appears healthy with good granulation tissue and should hopefully continue to heal without any further tunneling.
--- NOTE | 2020-04-22 15:25 | P.PNWOUND_ITS ---
Wound Care Note Date/Time: 04/22/20 15:25 History: Patient has chronic LLE wound after a skin tear from catching his leg on his car door. Debridement of non healing wound performed 2 weeks ago. Patient has been doing well with wound care. Denies any new problems. Just wants the wound to finally heal. Wound approximation: No Wound width: 2.3cm Wound length: 5.5cm Wound depth: 0.5cm Surrounding tissue appearance: healthy Tunneling: none Percentage granulation tissue: 100% Assessment and Plan Assessment and plan (1) Non-healing wound of left lower extremity: Code(s): S81.802A - Unspecified open wound, left lower leg, initial encounter Status: Chronic Assessment and Plan: * Will continue gentamicin ointment with Yesica to wound bed. Aquacel AG rope over wound. Patient should be able to continue this treatment until wound is fully healed. Weekly wound clinic visits for now, but may be able to release from wound clinic in 2-3 more weeks if continuing to improve. Review of Systems Review of Systems: All systems reviewed & are unremarkable except as noted in HPI and below Exam Skin: Other: See wound assessment above. Left lower leg wound is showing signs of improvement with tunneled area now opened and debrided.
== END 2020-05-26 23:59 | disposition home or self-care (01) ==
LOC: ANHWOC 07:25
PROVIDERS: PCP Family Medicine; Visit Provider Surgery
DX: S80.12XD Contusion of left lower leg, subsequent encounter (principal)
CPT/HCPCS: 11042; 99212; A9270; G0463

== ENCOUNTER 2020-07-01 07:00 | Outpatient (RCR) | payer MEDICARE, SELFPAY | END 2020-07-21 10:50 | disposition home or self-care (01) | LOC: ANHWOC 07:00 | PROVIDERS: PCP Family Medicine; Visit Provider Surgery | DX: S80.12XD Contusion of left lower leg, subsequent encounter (principal) | CPT/HCPCS: 99212; G0463 ==

== ENCOUNTER 2021-03-28 11:36 | Emergency (ER) | payer MEDICARE, SELFPAY ==
--- NOTE | ~2021-03-28 | US_ITS ---
EXAMINATION: US venous doppler [facility] DATE: 03/28/2021 12:45 INDICATION: Right lower limb pain and swelling. TECHNIQUE: Grayscale ultrasound images without and with compression and Doppler ultrasound images of the right lower extremity veins were obtained. COMPARISON: Ultrasound 07/04/2008 FINDINGS: The visualized portions of right common femoral vein, profunda (deep) femoral vein, femoral vein, pop liteal vein, peroneal veins, and posterior tibial veins are patent. There is thrombus in greater saph enous vein. IMPRESSION: 1. No deep venous thrombosis. 2. Thrombus in greater saphenous vein, which is a superficial vein. Reviewed, dictated and finalized at location A. [facility] [employer]
[2021-03-28 11:40] VITALS: BP 142/66; PULSE 93; RESP 18; TEMP 36.6; O2SAT 97
[2021-03-28 12:06] LABS: Basophils Absolute Auto 0.1 K/mm3 (0.0-0.1); Basophils Percent Auto 0.8 % (0.2-1.2); Eosinophils Absolute Auto 0.3 K/mm3 (0-0.3); Eosinophils Percent Auto 3.4 % (0-4.4); Hematocrit 37.7 % (42.0-52.0); Hemoglobin 11.9 g/dL (14.0-18.0); Immature Granulocyte Absolute 0.02 K/mm3 (0.00-0.031); Immature Granulocyte Percent A 0.3 % (0-0.5); Lymphocytes Absolute Auto 0.94 K/mm3 (0.9-3.2); Lymphocytes Percent Auto 12.6 % (18.3-44.2); Mean Corpuscular HGB Conc 31.6 g/dl (32-36); Mean Corpuscular Hemoglobin 28.7 pg (26-34); Mean Corpuscular Volume 90.8 fl (80-100); Mean Platelet Volume 9.9 fl (7.4-10.4); Monocytes Absolute Auto 0.6 K/mm3 (0.1-0.6); Monocytes Percent Auto 8.6 % (2.6-8.5); Neutrophils Absolute Auto 5.5 K/mm3 (1.3-6.7); Neutrophils Percent Auto 74.3 % (45.5-73.1); Platelet Count Result 146 k/mm3 (150-375); Red Blood Count 4.15 M/mm3 (4.6-6.20); Red Cell Distribution Width 13.9 % (11.5-14.5); White Blood Count 7.5 K/mm3 (4.5-10.0)
[2021-03-28 12:13] LABS: Anion Gap 6 mmol/L (8-16); Blood Urea Nitrogen 36 mg/dL (9-20); Calcium 8.4 mg/dL (8.4-10.2); Carbon Dioxide 24 mmol/L (22-30); Chloride 106 mmol/L (98-107); Estimated CRCL calculation 33 ml/min; Estimated Glomerular Filt Rate 39; Glucose 155 mg/dL (65-110); Potassium 4.1 mmol/L (3.4-5.0); Sodium 136 mmol/L (137-145)
[2021-03-28 12:18] LABS: Prothrombin Time 12.7 Seconds (11.1-14.7)
[2021-03-28 12:19] LABS: Partial Thromboplastin Time 26.4 SECONDS (22.3-36.8)
--- NOTE | 2021-03-28 12:19 | ED.EXTPRO ---
HPI - Extremity Problem General Chief complaint: Extremity Problem,Nontraumatic Stated complaint: leg pain Time Seen by Provider: 03/28/21 11:44 Source: patient Mode of arrival: ambulatory Limitations: no limitations History of Present Illness HPI Narrative: Patient is an 85-year-old male complaining of I have a DVT on his right lower extremity. Patient states that he has been having pain for the past few days. Patient states that he has a history of DVT in that leg, was taken off Coumadin last year after having a large hematoma in his left lower extremity, nonhealing wound and had surgery on that extremity. Patient states that he has been on Coumadin since 1998 due to DVT and cardiac surgery. Patient denies any chest pain, shortness of breath, fever or chills. Related Data Home Medications Medication Instructions Recorded Confirmed acyclovir 200 mg capsule 200 mg PO DAILY cap 04/17/19 03/23/21 clopidogrel 75 mg tablet 75 mg PO DAILY 04/17/19 03/23/21 doxazosin 2 mg tablet 2 mg PO DAILY 04/17/19 03/23/21 tacrolimus 1 mg capsule, 1 mg PO BID cap 04/17/19 03/23/21 immediate-release prednisone 5 mg PO DAILY 11/01/19 03/23/21 atorvastatin 10 mg tablet 10 mg PO QHS tablet 09/15/20 03/23/21 finasteride 5 mg tablet 5 mg PO DAILY tablet 09/15/20 03/23/21 hydroxyzine HCl 25 mg tablet 25 mg PO QHS tablet 09/15/20 03/23/21 loperamide 2 mg capsule 2 mg PO BID PRN cap 09/15/20 03/23/21 omeprazole 20 mg capsule,delayed 20 mg PO DAILY cap 09/15/20 03/23/21 release torsemide 20 mg tablet 20 mg PO DAILY tablet 09/15/20 03/23/21 cholecalciferol (vitamin D3) 25 25 mcg PO DAILY 03/23/21 03/23/21 mcg (1,000 unit) capsule clobetasol 0.05 % topical cream 1 applic TOPICAL DAILY 03/23/21 03/23/21 melatonin 5 mg capsule 5 mg PO QHS cap 03/23/21 03/23/21 Allergies Allergy/AdvReac Type Severity Reaction Status Date / Time No Known Allergies Allergy Verified 03/28/21 12:11 Review of Systems Review of Systems: All systems reviewed & are unremarkable except as noted in HPI and below Constitutional: Constitutional: Denies body ache(s), Denies chills, Denies excessive sweating, Denies fatigue, Denies fever(s), Denies headache(s), Denies lethargy, Denies malaise, Denies weakness and Denies weight loss Eyes: Eyes: Denies blurry vision, Denies change in vision and Denies loss of vision ENT: Denies dizziness, Denies ear discharge, Denies headache(s), Denies lip swelling, Denies epistaxis, Denies nasal congestion, Denies neck pain, Denies throat swelling and Denies tongue swelling Cardiovascular: Cardiovascular: Denies chest pain, Denies chest pain at rest, Denies chest pain with activity, Denies diaphoresis, Denies rapid heart rate, Denies edema, Denies irregular heart rhythm, Denies lightheadedness, Denies palpitations, Denies dyspnea and Denies dyspnea on exertion Respiratory: Respiratory: Denies chest congestion, Denies cough, Denies hemoptysis, Denies dyspnea and Denies dyspnea on exertion Gastrointestinal: Gastrointestinal: Denies abdominal pain, Denies melena, Denies hematochezia, Denies diarrhea, Denies nausea, Denies vomiting and Denies hematemesis Musculoskeletal: Musculoskeletal: Denies abnormal gait, Denies deformity, Denies joint swelling, Denies limited range of motion, Denies neck pain and Denies numbness Neurologic: Denies Abnormal speech present, Denies abnormal gait, Denies confusion, Denies dizziness, Denies headache(s), Denies focal weakness, Denies loss of vision, Denies numbness, Denies Other visual disturbances, Denies Sensory deficit (Neuro) and Denies weakness Psychiatric: Psychiatric: Denies confusion, Denies depression, Denies auditory hallucinations, Denies homicidal ideation and Denies suicidal ideation Endocrine: Endocrine: Denies cold intolerance, Denies excessive sweating, Denies fatigue, Denies heat intolerance and Denies palpitations Hematologic/Lymphatic: Hematologic/Lymphatic: Denies easy bleeding and Denies
[2021-03-28 13:26] VITALS: BP 121/66; PULSE 66; RESP 14; O2SAT 94
[2021-03-28 14:27] VITALS: BP 139/89; PULSE 69; RESP 20; O2SAT 100
[2021-03-28] MEDS: HYDROcodone/acetaminophen (*CRX) 5-325 MG TABLET 1 TAB PO (14:32)
== END 2021-03-28 14:27 | disposition home or self-care (01) ==
PROVIDERS: Emergency Provider Emergency Medicine; PCP Family Medicine
DX: I82.811 Embolism and thrombosis of superficial veins of right lower extremity (principal); I12.9 Hypertensive chronic kidney disease with stage 1 through stage 4 chronic kidney disease, or unspecified chronic kidney disease; N18.30 Chronic kidney disease, stage 3 unspecified; I25.10 Atherosclerotic heart disease of native coronary artery without angina pectoris; E78.5 Hyperlipidemia, unspecified; N40.0 Benign prostatic hyperplasia without lower urinary tract symptoms; R73.03 Prediabetes; K21.9 Gastro-esophageal reflux disease without esophagitis; E55.9 Vitamin D deficiency, unspecified; L11.1 Transient acantholytic dermatosis [Grover]; M19.90 Unspecified osteoarthritis, unspecified site; Z94.1 Heart transplant status; Z85.828 Personal history of other malignant neoplasm of skin; Z96.641 Presence of right artificial hip joint
CPT/HCPCS: 36415; 80048; 85025; 85610; 85730; 93971; 99284; A9270

== ENCOUNTER 2022-01-30 17:08 | Emergency (ER) | payer MEDICARE, SELFPAY ==
--- NOTE | ~2022-01-30 | XR_ITS ---
XR chest 1V portable DATE: 01/30/2022 17:33 INDICATION: Shortness of breath TECHNIQUE: Portable upright AP chest on 01/30/2022 at 1732 hours COMPARISON: 09/28/2011 two-view chest FINDINGS: Mild discoid atelectasis or scarring in the lateral left midlung. Bilateral hyperinflation. No pulmonary infiltrate or consolidation, pleural effusion or pulmonary vascular congestion or pneum othorax is detected. Normal heart size. Status post sternotomy. Possible coronary artery stent. Aortic arch calcification. Diffuse osteopenia. IMPRESSION: Mild discoid atelectasis or scarring in the lateral left midlung. No active cardiopulmona ry disease is noted otherwise Status post sternotomy. Probable coronary artery stent. Aortic calcification Reviewed, dictated and finalized at location A. SSION NURSE IMPRESSION: Mild discoid atelectasis or scarring in the lateral left midlung. N o active cardiopulmonary disease is noted otherwise Status post sternotomy. Probable coronary artery stent. Aortic calcification
[2022-01-30 17:16] VITALS: BP 155/107; PULSE 87; RESP 18; TEMP 37.1; O2SAT 100
--- NOTE | 2022-01-30 17:50 | ED.RECABL ---
HPI - Recheck/Abnormal Lab/Rx General Chief Complaint: Recheck/Abnormal Lab/Rx Stated Complaint: told he has a PE Time Seen by Provider: 01/30/22 17:23 Source: patient and family Mode of arrival: wheelchair Limitations: no limitations History of Present Illness HPI narrative: This is an 86 year old male with history of squamous cell carcinoma, heart transplant, CAD, CHF who presents for evaluation of pulmonary emboli. Patient states he had skin cancer resected from his scalp 2 weeks ago and he was referred to [facility]. He had an outpatient CT brain, chest , abdomen and pelvis done today for cancer staging. He was called by his ENT doctor and he was told to go to ER because he was found to have pulmonary emboli. He denies having chest pain, shortness of breath , dizziness, weakness. He has no complaints. He has chronic bilateral leg edema but he denies worsening. He also denies leg pain. He denies history of pulmonary emboli. He was on plavix due to his heart disease but it has been on hold for his cancer resection. Related Data Home Medications Medication Instructions Recorded Confirmed acyclovir 200 mg capsule 200 mg PO DAILY 04/17/19 11/28/21 clopidogrel 75 mg tablet 75 mg PO DAILY 04/17/19 11/28/21 doxazosin 2 mg tablet 2 mg PO DAILY 04/17/19 11/28/21 tacrolimus 1 mg capsule, 1 mg PO BID 04/17/19 11/28/21 immediate-release prednisone 5 mg tablet 5 mg PO DAILY 11/01/19 11/28/21 finasteride 5 mg tablet 5 mg PO DAILY 09/15/20 11/28/21 loperamide 2 mg capsule 2 mg PO BID PRN diarrhea 09/15/20 11/28/21 omeprazole 20 mg capsule,delayed 20 mg PO DAILY 09/15/20 11/28/21 release cholecalciferol (vitamin D3) 25 25 mcg PO DAILY 03/23/21 11/28/21 mcg (1,000 unit) capsule clobetasol 0.05 % topical cream 1 applic topical DAILY 03/23/21 11/28/21 aspirin 81 mg tablet,delayed 81 mg PO .QOD 09/15/21 11/28/21 release (Adult Low Dose Aspirin) atorvastatin 20 mg tablet 20 mg PO QHS 09/15/21 11/28/21 doxepin 25 mg capsule 25 mg PO QHS 11/28/21 11/28/21 Allergies Allergy/AdvReac Type Severity Reaction Status Date / Time No Known Allergies Allergy Verified 01/30/22 17:22 Review of Systems Constitutional: Constitutional: Denies weakness Cardiovascular: Cardiovascular: Denies syncope, Denies rapid heart rate, Denies irregular heart rhythm and Denies dyspnea Respiratory: Respiratory: Denies chest congestion, Denies hemoptysis, Denies excessive phlegm production and Denies dyspnea Gastrointestinal: Gastrointestinal: Denies abdominal pain, Denies hematochezia, Denies diarrhea and Denies vomiting Genitourinary: Genitourinary: Denies hematuria, Denies dysuria, Denies penile discharge and Denies testicular pain Musculoskeletal: Musculoskeletal: Denies joint swelling, Denies loss of height and Denies muscle weakness Neurologic: Denies syncope, Denies focal weakness and Denies weakness [facility] Past Medical History Medical History 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 Chronic diarrhea Chronic low back pain CKD (chronic kidney disease) stage 3, GFR 30-59 ml/min 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
[2022-01-30 18:33] LABS: Basophils Absolute Auto 0.1 K/mm3 (0.0-0.1); Basophils Percent Auto 1.1 % (0.2-1.2); Eosinophils Absolute Auto 0.1 K/mm3 (0-0.3); Eosinophils Percent Auto 1.5 % (0-4.4); Hematocrit 40.4 % (42.0-52.0); Hemoglobin 13.2 g/dL (14.0-18.0); Immature Granulocyte Absolute 0.01 K/mm3 (0.00-0.031); Immature Granulocyte Percent A 0.2 % (0-0.5); Lymphocytes Absolute Auto 0.93 K/mm3 (0.9-3.2); Lymphocytes Percent Auto 17.4 % (18.3-44.2); Mean Corpuscular HGB Conc 32.7 g/dl (32-36); Mean Corpuscular Hemoglobin 31.4 pg (26-34); Monocytes Absolute Auto 0.5 K/mm3 (0.1-0.6); Monocytes Percent Auto 10.1 % (2.6-8.5); Neutrophils Absolute Auto 3.7 K/mm3 (1.3-6.7); Neutrophils Percent Auto 69.7 % (45.5-73.1); Platelet Count Result 132 k/mm3 (150-375); Red Blood Count 4.21 M/mm3 (4.6-6.20); Red Cell Distribution Width 13.3 % (11.5-14.5); White Blood Count 5.3 K/mm3 (4.5-10.0)
[2022-01-30 18:42] LABS: INR 1.1; Prothrombin Time 13.6 Seconds (11.1-14.7)
[2022-01-30 18:43] LABS: Partial Thromboplastin Time 27.3 SECONDS (22.3-36.8)
--- NOTE | 2022-01-30 18:44 | PC.NURSE ---
Pt said is leaving [facility] and is going to [facility], where all of his doctors are and tests were done.
[2022-01-30 18:47] LABS: Alanine Aminotransferase 26 U/L (6-50); Albumin Level 3.9 g/dL (3.5-5.1); Alkaline Phosphatase 139 U/L (38-126); Anion Gap 4 mmol/L (8-16); Aspartate Amino Transferase 25 U/L (17-59); Bilirubin,Total 0.6 mg/dL (0.2-1.3); Blood Urea Nitrogen 30 mg/dL (9-20); Calcium 8.4 mg/dL (8.4-10.2); Carbon Dioxide 32 mmol/L (22-30); Chloride 103 mmol/L (98-107); Estimated CRCL calculation 35 ml/min; Estimated Glomerular Filt Rate 41; Glucose 106 mg/dL (65-110); Potassium 4.2 mmol/L (3.4-5.0); Sodium 139 mmol/L (137-145)
[2022-01-30 19:00] LABS: NT Pro B Type Natriuretic Pept 3490 pg/mL (5-100); Troponin I 0.032 ng/mL (0.000-0.034)
[2022-01-30 19:07] LABS: Influenza A QL RT-PCR Negative (Negative); Influenza B QL RT-PCR Negative (Negative); SARS-CoV-2 RNA PCR Negative
== END 2022-01-30 19:00 | disposition left against medical advice (07) ==
LOC: ANHED 17:47
PROVIDERS: Emergency Provider General Practice; PCP Family Medicine
DX: I26.99 Other pulmonary embolism without acute cor pulmonale (principal); Z20.822 Contact with and (suspected) exposure to COVID-19; C44.92 Squamous cell carcinoma of skin, unspecified; N18.30 Chronic kidney disease, stage 3 unspecified; I13.0 Hypertensive heart and chronic kidney disease with heart failure and stage 1 through stage 4 chronic kidney disease, or unspecified chronic kidney disease; I50.9 Heart failure, unspecified; I25.759 Atherosclerosis of native coronary artery of transplanted heart with unspecified angina pectoris; E78.5 Hyperlipidemia, unspecified; Z94.1 Heart transplant status; N40.0 Benign prostatic hyperplasia without lower urinary tract symptoms; K21.9 Gastro-esophageal reflux disease without esophagitis; M19.90 Unspecified osteoarthritis, unspecified site; L11.1 Transient acantholytic dermatosis [Grover]; E55.9 Vitamin D deficiency, unspecified; R73.03 Prediabetes; Z96.641 Presence of right artificial hip joint; Z86.718 Personal history of other venous thrombosis and embolism; Z79.82 Long term (current) use of aspirin
CPT/HCPCS: 36415; 71045; 80053; 83880; 84484; 85025; 85610; 85730; 87636; 99284

== ENCOUNTER → 2022-08-23 15:02 | Outpatient (CLI) | payer MEDICARE, SELFPAY ==
--- NOTE | ~2022-08-23 | XR_ITS ---
EXAMINATION: XR knee LT 3V DATE: 08/23/2022 15:25 INDICATION: Left knee pain. TECHNIQUE: 3 views of left knee including standing views were obtained. COMPARISON: None. FINDINGS: Bone alignment is normal. No fracture. There is moderate osteoarthritis of medial compartme nt and mild osteoarthritis of lateral and patellofemoral compartments. 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 There is a small knee joint effusion. IMPRESSION: 1. Moderate left knee osteoarthritis. 2. Small left knee joint effusion. Reviewed, dictated and finalized at location E.
== END ==
PROVIDERS: PCP Nurse Practitioner Family; Visit Provider Nurse Practitioner Family
DX: M17.12 Unilateral primary osteoarthritis, left knee (principal); M25.462 Effusion, left knee
CPT/HCPCS: 73562

== ENCOUNTER 2022-08-23 15:24 | Outpatient (CLI) | payer MEDICARE, SELFPAY ==
[2022-08-23 18:25] LABS: Uric Acid 11.4 mg/dL (3.5-8.5)
== END 2022-08-23 15:25 | disposition home or self-care (01) ==
LOC: ANHGOSHLAB 15:25
PROVIDERS: PCP Nurse Practitioner Family; Visit Provider Nurse Practitioner Family
DX: M25.562 Pain in left knee (principal)
CPT/HCPCS: 36415; 84550

== ENCOUNTER 2022-12-27 14:33 | Outpatient (CLI) | payer MEDICARE, SELFPAY ==
--- NOTE | ~2022-12-27 | US_ITS ---
US venous doppler LE RT DATE: 12/27/2022 15:39 INDICATION: Right leg pain TECHNIQUE: Real-time and color flow imaging and Doppler analysis of the veins of the right lower extr emity COMPARISON: None FINDINGS: There is spontaneous and phasic flow and normal augmentation and color flow signal and norm al compression of the deep veins of the right lower extremity. Flow is demonstrated in the greater saphenous vein but the vein does not completely compress. IMPRESSION: No deep venous thrombosis of right lower extremity Reviewed, dictated and finalized at Location A. Reviewed, dictated and finalized at location B. GAUGER
== END 2022-12-27 14:34 | disposition home or self-care (01) ==
PROVIDERS: PCP Family Medicine; Visit Provider Family Medicine
DX: M79.604 Pain in right leg (principal); M79.89 Other specified soft tissue disorders
CPT/HCPCS: 93971

== ENCOUNTER 2022-12-28 14:29 | Outpatient (CLI) | payer MEDICARE, SELFPAY ==
--- NOTE | ~2022-12-28 | XR_ITS ---
XR tibia fibula RT 2V DATE: 12/28/2022 14:53 INDICATION: Pain and swelling TECHNIQUE: AP and lateral views COMPARISON: None FINDINGS: No fracture or dislocation, periosteal reaction or bone destruction of the tibia or fibula. Normal alignment at the knee and ankle joints. IMPRESSION: No significant abnormality Reviewed, dictated and finalized at location L. ING MACHINE OPERATOR IMPRESSION: No significant abnormality
== END 2022-12-28 14:30 | disposition home or self-care (01) ==
PROVIDERS: PCP Family Medicine; Visit Provider Family Medicine
DX: M79.604 Pain in right leg (principal); M79.89 Other specified soft tissue disorders
CPT/HCPCS: 73590

== ENCOUNTER 2023-04-13 07:12 | Outpatient (RCR) | payer MEDICARE, SELFPAY ==
[2023-03-23 11:02] VITALS: BMI 23.8
--- NOTE | 2023-05-17 15:18 | PCWOUND ---
WOCN NOTE Patient's called to cancel appointment tomorrow due to a in the family and needing to go out of town.
== END 2023-06-15 13:31 | disposition home or self-care (01) ==
LOC: ANHWOC 07:12
PROVIDERS: PCP Family Medicine
DX: C44.42 Squamous cell carcinoma of skin of scalp and neck (principal); S01.00XD Unspecified open wound of scalp, subsequent encounter
CPT/HCPCS: 99214; 99215; A9270; G0463